=== PATIENT | female | born 1985 | race Caucasian/White ===

== ENCOUNTER 2017-01-25 06:26 | Emergency (ER) | payer OTHER ==
[~2017-01-25] VITALS: Ht 162.6 cm; Wt 81.0 kg
[~2017-01-25 06:26] MED LIST: PREN1TAB12 PO
[2017-01-25 06:31] VITALS: Ht 162.6 cm; Wt 81.0 kg
[2017-01-25] MEDS ORDERED: SOD CHLORIDE 0.9% 1,000 ML IV STA (07:55)
--- NOTE | 2017-01-25 08:00 | ERD ---
ER Documentation Chief Complaint Date/Time DATE: 01/25/17 TIME: 07:56 Chief Complaint woke up with anxiety , sob , able to talk in full sentences , nausea HPI Patient is a 31-year-old female who presents with sudden onset, constant, moderate shortness of breath associated with total body numbness, nausea, palpitations, and lightheadedness. She reports that she awoke from sleep at 4: 30 in the morning with the symptoms. She went to the bathroom and took a cold shower, and her said that she looked pale. They called paramedics who believed that the patient was having an anxiety attack. The patient denies anxiety, but states that she has had a lot of anger recently and has an appointment with a psychologist next week. She denies depression. She denies history of similar symptoms in the past. She denies vomiting. She denies chest pain. She denies abdominal or back pain. She denies headache. She denies focal weakness or numbness.She states that she took a dose of her 's prescription medication for headache last night, but does not know which medication. ROS All systems reviewed and are negative except as per history of present illness. Medications Home Meds Active Scripts Cephalexin* (Keflex*) 500 Mg Capsule, 500 MG PO QID for 7 Days, CAP Prov:MICHAEL WEIR MD 01/25/17 Discontinued Reported Medications Vit/Fe Fumarate/Fa ( 1-1 Tablet) 1 Tab Tablet, 1 TAB PO DAILY, #1 02/16/12 Allergies Allergies: Coded Allergies: No Known Drug Allergies (Verified Allergy, Mild, 01/25/17) PMhx/Soc Past medical history: None Past surgical history: None Social history: Denies tobacco, alcohol or illicit drugs Medical and Surgical Hx: pt denies Medical Hx, pt denies Surgical Hx Hx Alcohol Use: No Hx Substance Use: No Hx Tobacco Use: No Smoking Status: Never smoker FmHx Family History: No coronary disease, No diabetes Physical Exam Vitals Vital Signs Date Time Temp Pulse Resp B/P Pulse Ox O2 Delivery O2 Flow Rate FiO2 01/25/17 14:40 66 18 97/54 98 Room Air 01/25/17 13:26 62 18 94/56 98 Room Air 01/25/17 11:30 64 18 97/61 98 Room Air 01/25/17 10:05 66 18 96/54 98 01/25/17 06:31 98.1 76 18 116/81 98 Physical Exam Const: Alert, no acute distress Head: Atraumatic Eyes: Normal Conjunctiva, No pallor, no icterus ENT: Normal External Ears, Nose and Mouth.Mucous membranes moist Neck: Full range of motion..~ No meningismus. Resp: Clear to auscultation bilaterally, No wheezes, no rales Cardio: Regular rate and rhythm, no murmurs Abd: Soft, non tender, non distended. Skin: No petechiae or rashes Back: No midline or flank tenderness Ext: No cyanosis, or edema Neur: Awake and alert, Cranial nerves II through XII intact bilaterally, strength and sensation full in 4 extremities, no pronator drift Psych: Appears slightly anxious Result Diagram: 01/25/17 0806 01/25/17 0806 Results 24 hrs Laboratory Tests Test 01/25/17 08:06 01/25/17 12:45 White Blood Count 11.910^3/ul Red Blood Count 4.6510^6/ul Hemoglobin 14.6g/dl Hematocrit 42.3% Mean Corpuscular Volume 91.0fl Mean Corpuscular Hemoglobin 31.4pg Mean Corpuscular Hemoglobin Concent 34.5g/dl Red Cell Distribution Width 12.0% Platelet Count 75200^3/UL Mean Platelet Volume 12.5fl Neutrophils % 80.8% Lymphocytes % 13.1% Monocytes % 5.1% Eosinophils % 0.3% Basophils % 0.3% Nucleated Red Blood Cells % 0.0/100WBC Neutrophils # (Manual) 9.610^3/ul Lymphocytes # 1.610^3/ul Monocytes # 0.610^3/ul Eosinophils # 0.010^3/ul Basophils # 0.010^3/ul Nucleated Red Blood Cells # 0.010^3/ul Sodium Level 140mmol/L Potassium Level 3.9mmol/L Chloride Level 103mmol/L Carbon Dioxide Level 24mmol/L Anion Gap 17 Blood Urea Nitrogen 14mg/dl Creatinine 0.72mg/dl Glucose Level 100mg/dl Calcium Level 9.0mg/dl Urine Color STRAW Urine Clarity CLEAR Urine pH 6.0 Urine Specific [place] 1.006 Urine Ketones NEGATIVEmg/dL Urine Nitrite NEGATIVEmg/dL Urine Bilirubin NEGATIVEmg/dL Urine Urobilinogen NEGATIVEmg/dL Urine Leukocyte Esterase 3+Benedict/ul Urine Microscopic RBC 2/HPF Urine Microscopic WBC 23/HPF Urine Squamous Epithelial Cells FEW/HPF Urine Bacteria FEW/HPF Urine Hemoglobin 1+mg/dL Urine Glucose NEGATIVEmg/dL Urine Total Protein NEGATIVEmg/dl Current Medications Medications (Trade) Dose Ordered Sig/Bernard Route PRN Reason Start Time Stop Time Status Last Admin Dose Admin Sodium Chloride (NS) 1,000 ml @ 1,000 mls/hr Q1H STAT IV 01/25/17 07:55 01/25/17 08:54 DC 01/25/17 08:13 Procedures/MDM EKG read by me: Time 808, rate 63 Rhythm: Normal sinus [place]: Normal Intervals: Normal ST-T waves: no ischemic changes Ectopy: No Q-waves: No Impression: No evidence of ischemia or arrhythm MDM: Patient is a 31-year-old female who presents with multiple complaints including dyspnea, presyncope, nausea, total body numbness. She was an inconsistent historian, and initially denied vomiting, but on reassessment stated that she did vomit. She also was inconsistent regarding whether she had passed out. She appeared anxious, and paramedics believe that her symptoms are due to anxiety as well. Medical workup was performed and shows no significant abnormality except for mild leukocytosis and evidence of UTI. On reassessment after receiving IV fluids, the patient stated that she felt better. There is no vomiting while she was in the ER. She had stable vital signs. She had no respiratory symptoms and has a normal chest x-ray. She has a nonischemic EKG. I believe that there is a significant component of anxiety to the patient's symptoms. She has no depression or suicidality. She does not respond to internal stimuli. She has outpatient psychiatric consultation scheduled. I will discharge her with a prescription for Keflex and will send urine culture. I have advised her on return precautions. Departure Diagnosis: Primary Impression: UTI (urinary tract infection) Urinary tract infection type: site unspecified Hematuria presence: without hematuria Qualified Code: N39.0 - Urinary tract infection without hematuria, site unspecified Additional Impressions: Pre-syncope Anxiety Condition: MICHAEL Wise MD Jan 25, 2017 08:00
[2017-01-25 08:34] LABS: BASOPHILS % 0.3 % (0.0-2.0); EOSINOPHILS % 0.3 % (0.0-7.0); HEMATOCRIT 42.3 % (37.0-47.0); HEMOGLOBIN 14.6 g/dl (12.0-16.0); LYMPHOCYTES # 1.6 10^3/ul (0.8-2.9); LYMPHOCYTES % 13.1 % (15.0-51.0); MEAN CORPUSCULAR HEMOGLOBIN 31.4 pg (29.0-33.0); MEAN CORPUSCULAR HGB CONC 34.5 g/dl (32.0-37.0); MEAN PLATELET VOLUME 12.5 fl (7.4-10.4); MONOCYTE # 0.6 10^3/ul (0.3-0.9); MONOCYTES % 5.1 % (0.0-11.0); NEUTROPHILS % 80.8 % (39.0-77.0); PLATELET COUNT 184 10^3/UL (140-415); RED BLOOD COUNT 4.65 10^6/ul (4.20-5.40); WHITE BLOOD COUNT 11.9 10^3/ul (4.8-10.8)
[2017-01-25 09:06] LABS: CREATININE 0.72 mg/dl (0.44-1.00); POTASSIUM 3.9 mmol/L (3.5-5.1)
--- NOTE | 2017-01-25 09:07 | RADRPT ---
PROCEDURE: Chest radiograph CLINICAL INDICATION: Syncope. COMPARISON: None relevant listed. TECHNIQUE: Single frontal chest radiograph. FINDINGS: The lungs are clear. No pleural effusion or focal parenchymal opacity. The cardiomediastinal silhouette is normal. No suspicious bone lesion. IMPRESSION: No acute cardiopulmonary abnormality. RPTAT: PP Physician Saji Date Time Electronically viewed and signed by Conor Souza Physician on 01/25/2017 09:07 LG/
[2017-01-25 13:54] LABS: ADD UMIC YES; UR ASCORBIC ACID NEGATIVE (NEGATIVE); UR BACTERIA FEW /HPF (NONE SEEN); UR BILIRUBIN (Dip) NEGATIVE (NEGATIVE); UR BLOOD (Dip) 1+ mg/dL (NEGATIVE); UR CLARITY CLEAR (CLEAR); UR COLOR STRAW (YELLOW); UR GLUCOSE (Dip) NEGATIVE (NEGATIVE); UR KETONES (Dip) NEGATIVE (NEGATIVE); UR LEUKOCYTE ESTERASE (Dip) 3+ Leu/ul (NEGATIVE); UR NITRITE (Dip) NEGATIVE (NEGATIVE); UR RBC 2 /HPF (0-5); UR SPECIFIC GRAVITY (Dip) 1.006 (1.003-1.030); UR SQUAMOUS EPITHELIAL CELL FEW /HPF (FEW); UR TOTAL PROTEIN (Dip) NEGATIVE (NEGATIVE); UR UROBILINOGEN (Dip) NEGATIVE (NEGATIVE)
[2017-01-25] MEDS ORDERED: CEPH-443 PO (14:20)
[2017-01-25 14:40] VITALS: BP 97/54; PULSE 66; RESP 18
== END 2017-01-25 14:40 | disposition home or self-care (01) ==
LOC: E/R 06:26
DX: N39.0 Urinary tract infection, site not specified (principal); R55 Syncope and collapse
CPT/HCPCS: 36415; 71010; 80048; 81001; 85025; 87086; 93005; J7030; Z7502

== ENCOUNTER 2019-01-03 15:49 | Emergency (ER) | payer OTHER ==
[~2019-01-03] VITALS: Ht 167.6 cm; Wt 77.3 kg
[~2019-01-03 15:49] MED LIST changes: +CEPH-443 PO; +IBUP-1542 PO; +ONDA4TAB14 PO; -PREN1TAB12 PO
[2019-01-03 16:25] VITALS: Ht 167.6 cm; Wt 77.3 kg
--- NOTE | 2019-01-03 16:37 | ERD ---
ER Documentation Chief Complaint Chief Complaint NEAR SYNCOPAL EPISODE WITHOUT TRAUMA. HPI The patient is a 33-year-old female, presenting to the ER because of a near syncopal episode while she was eating. She just finished donating plasma about 2 hours ago. She recently donated plasma a few days ago. She was about to eat and felt nauseous. She did not have a seizure, headache, neck pain, chest pain, dyspnea, vomiting, dysuria. She does not smoke or drink Past medical history: Migraine Past surgical history: None ROS All systems reviewed and are negative except as per history of present illness. Medications Home Meds Active Scripts Ibuprofen* (Motrin*) 600 Mg Tab, 600 MG PO Q6H PRN for PAIN AND OR ELEVATED TEMP, #20 TAB Prov:LORENA CERON MD 01/03/19 Ondansetron (Ondansetron Odt) 4 Mg Tab.rapdis, 4 MG PO Q6H PRN for NAUSEA AND/OR VOMITING, #10 TAB Prov:LORENA CERON MD 01/03/19 Discontinued Scripts Cephalexin* (Keflex*) 500 Mg Capsule, 500 MG PO QID for 7 Days, CAP Prov:MICHAEL WEIR MD 01/25/17 Allergies Allergies: Coded Allergies: No Known Drug Allergies (Verified Allergy, Mild, 01/03/19) PMhx/Soc History of Surgery: No Anesthesia Reaction: No Hx Neurological Disorder: Yes (MIGRAINES) Hx Respiratory Disorders: No Hx Cardiac Disorders: No Hx Psychiatric Problems: No Hx Miscellaneous Medical Probl: No Hx Alcohol Use: No Hx Substance Use: No Hx Tobacco Use: No Smoking Status: Never smoker Physical Exam Vitals Vital Signs Date Temp Pulse Resp B/P (MAP) Pulse Ox O2 O2 Flow FiO2 Time Delivery Rate 01/03/19 65 20 114/65 98 Room Air 18:06 (81) 01/03/19 85 20 104/65 97 Room Air 16:58 (78) 01/03/19 98.4 57 16 100/66 100 16:25 (77) Physical Exam Const: No acute distress.Dehydrated Head: Atraumatic. Eyes: Normal Conjunctiva. ENT: Normal External Ears, Nose and Mouth. Neck: Full range of motion. No meningismus. Resp: Clear to auscultation bilaterally. Cardio: Regular rate and rhythm. Abd: Soft, non distended, normal bowel sounds, non tender. Skin: No petechiae or rashes. Back: No midline or flank tenderness. Ext: No cyanosis, or edema. Neur: Awake and alert. No focal deficit Psych: Normal Mood and Affect. Result Diagram: 01/03/19 1710 01/03/19 1710 Results 24 hrs Laboratory Tests Test 01/03/19 17:10 01/03/19 19:05 01/03/19 19:15 01/03/19 19:17 White Blood Count 16.6 10^3/ul Red Blood Count 4.79 10^6/ul Hemoglobin 15.2 g/dl Hematocrit 44.1 % Mean Corpuscular 92.1 fl Volume Mean Corpuscular 31.7 pg Hemoglobin Mean Corpuscular 34.5 g/dl Hemoglobin Concent Red Cell 12.1 % Distribution Width Platelet Count 223 10^3/UL Mean Platelet 12.8 fl Volume Immature 0.500 % Granulocytes % Neutrophils % 66.6 % Lymphocytes % 22.8 % Monocytes % 8.7 % Eosinophils % 1.0 % Basophils % 0.4 % Nucleated Red Blood 0.0 /100WBC Cells % Immature 0.080 10^3/ul Granulocytes # Neutrophils # 11.1 10^3/ul Lymphocytes # 3.8 10^3/ul Monocytes # 1.5 10^3/ul Eosinophils # 0.2 10^3/ul Basophils # 0.1 10^3/ul Nucleated Red Blood 0.0 10^3/ul Cells # Sodium Level 136 mmol/L Potassium Level 3.5 mmol/L Chloride Level 107 mmol/L Carbon Dioxide 23 mmol/L Level Anion Gap 6 Blood Urea Nitrogen 15 mg/dl Creatinine 0.77 mg/dl Est Glomerular > 60 mL/min Filtrat Rate mL/min Glucose Level 100 mg/dl Calcium Level 8.0 mg/dl Total Bilirubin 0.5 mg/dl Direct Bilirubin 0.00 mg/dl Indirect Bilirubin 0.5 mg/dl Aspartate Amino 51 IU/L Transf (AST/SGOT) Alanine 24 IU/L Aminotransferase (A LT/SGPT) Alkaline 61 IU/L Phosphatase Troponin I < 0.012 ng/ml Total Protein 5.7 g/dl Albumin 3.1 g/dl Globulin 2.60 g/dl Albumin/Globulin 1.19 Ratio Ethyl Alcohol Level < 10.0 mg/dl Urine Opiates Negative Screen Urine Barbiturates Negative Urine Amphetamines Negative Screen Urine Negative Benzodiazepines Screen Urine Cocaine Negative Screen Urine Cannabinoids Negative Bedside Urine pH 7.0 (LAB) Bedside Urine 1+ Protein (LAB) Bedside Urine Negative Glucose (UA) Bedside Urine Trace Ketones (LAB) Bedside Urine Blood Trace-intact Bedside Urine Negative Nitrite (LAB) Bedside Urine Negative Leukocyte Esterase (L POC Beta HCG, NEGATIVE Qualitative Current Medications Medications Dose Sig/Bernard Start Time Status Last (Trade) Ordered Route PRN Stop Time Admin Dose Reason Admin Sodium 1,000 ml @ Q1H STAT 01/03/19 DC 01/03/19 Chloride 1,000 mls/hr IV 16:45 16:58 01/03/19 17:44 Ondansetron 4 mg ONCE STAT 01/03/19 DC 01/03/19 HCl (Zofran IV 16:45 16:57 Inj) 01/03/19 16:47 Sodium 1,000 ml @ Q1H ONCE 01/03/19 01/03/19 Chloride 1,000 mls/hr IV 20:00 18:45 01/03/19 20:59 Ketorolac 30 mg ONCE STAT 01/03/19 DC 01/03/19 Tromethamine IV 19:36 19:49 (Toradol) 01/03/19 19:38 Procedures/MDM EKG: Read by emergency physician Rate/Rhythm: Normal Sinus Rhythm 66 beats/min QRS, ST, T-waves: No ST elevation, no T inversion Impression: Normal EKG MEDICAL MAKING DECISION: The patient is a 33-year-old female, presenting with acute near syncope most likely due to acute dehydration she was treated with 2 L normal saline over many hours, Zofran IV for nausea., Toradol 30 mg IV for her discomfort with good response, is stable for outpatient follow-up Leukocytosis is most likely due to acute dehydration and acute stress, I do not suspect any infectious etiology The differential diagnoses considered include but are not limited to dehydration, [place] imbalance, anxiety attack, panic attack, arrhythmia Departure Diagnosis: Primary Impression: Near syncope Additional Impression: Dehydration Condition: Good Comments I discussed the findings with the patient. I advised the patient to follow-up with the primary physician in about 1-2 days, sooner if needed and return if any concern. Disclaimer: Inadvertent spelling and grammatical errors are likely due to EHR/dictation software use and do not reflect on the overall quality of patient care. Also, please note that the electronic time recorded on this note does not necessarily reflect the actual time of the patient encounter. LORENA CERON MD Jan 03, 2019 16:37
[2019-01-03] MEDS ORDERED: ONDANSETRON 4 MG INJ IV STA (16:45)
[2019-01-03] MEDS ORDERED: SOD CHLORIDE 0.9% 1,000 ML IV STA (16:45)
[2019-01-03] MEDS ORDERED: KETOROLAC 30 MG INJ IV STA (19:36)
[2019-01-03] MEDS ORDERED: SOD CHLORIDE 0.9% 1,000 ML IV ONE (20:00)
[2019-01-03 20:33] VITALS: BP 99/59; PULSE 67; RESP 20
== END 2019-01-03 20:40 | disposition home or self-care (01) ==
LOC: E/R 15:49
DX: R55 Syncope and collapse (principal); E86.0 Dehydration
CPT/HCPCS: 36415; 80053; 80307; 81003; 81025; 84484; 85025; 93005; 96374; 96375; J1885; J2405; J7030; Z7502